=== PATIENT | female | born 1985 | race Native Hawaiian/Other Pacific Islander ===

== ENCOUNTER 2017-04-26 09:54 | Emergency (ER) | payer BC, OTHER ==
[2017-04-26 10:10] VITALS: BMI 27.9
[2017-04-26 10:52] LABS: RBC URINE 2 /hpf (0-3); URINE BACTERIA RARE (<OCC); URINE BILIRUBIN NEGATIVE (NEGATIVE); URINE BLOOD NEGATIVE (NEGATIVE); URINE COLOR Yellow (YELLOW); URINE GLUCOSE (UA) NORMAL (Normal); URINE KETONE NEGATIVE (NEGATIVE); URINE LEUKOCYTE ESTERASE 1+ Leu/uL (Negative); URINE PROTEIN NEGATIVE (NEGATIVE); URINE UROBILINOGEN NORMAL mg/dL (0.2-1.0); WBC URINE 2 /hpf (0-5)
--- NOTE | 2017-04-26 11:07 | OBHP ---
Datetime: 04/26/2017 10:10 IP Adm Impression: , intrauterine ; No Active Labor IP Adm Impression Other: uti IP Admit Plan: Discharge home Admit Comment, IP Provider: chief compalint- spotting HPI 31 y/o at 35 wga with c/o noticing a spot of blood in toilet after having a bowel movemen t.States that this was a normal bowel movement.Patient denies nausea, vomiting, headache, chest pain, shortness of breath, numbness or tingling in hands and feet course uncomplicated PMH denies PSH denies OBGYN HX Social hx denies tobacco,alcohol or illicit drug use exam see exam section A/P 31 y/o at 35 wga here with c/o noticing a spot of blood in toilet after bowel moveemnt.No evidence of blood in vagina on speculum exam.cervix closed.send UA 1105 m UA 1+LE;epitehlial cells 1; no nitrites A/P UTI -Script for macrobid given follow up [facility] dr dill enxt week Discussed with dr dill Pelvic Type - PN: Adequate Extremities - PN: Normal Abdomen - PN: Normal Back - PN: Normal Lungs - PN: Normal Heart - PN: Normal Neurologic - PN: Normal General - PN: Normal Contraction Comments Provider: none Comments, ACOG Physical Exam: Speculum exam Vulva no lesions Vagina no discharge; no blood or pink discharge Cervix closed/thick and high uterus gravid adnexa-no adnexal tenderness Gestation - Est Wks by US: 35.0 EGA AdmitDate IP: 35.0 Vital Signs Provider: Reviewed IP Chief Complaint: Vaginal bleeding FHR Category Provider Fetus A: Category I Dilatation, Provider: 0 Genitourinary Exam: Normal DTRs - PN: Normal
== END 2017-04-26 11:07 | disposition home or self-care (01) ==
LOC: C.EROB 09:54
DX: O26.853 Spotting complicating pregnancy, third trimester (principal); Z3A.35 35 weeks gestation of pregnancy

== ENCOUNTER 2017-05-14 10:34 | Emergency (ER) | payer BC, OTHER | END 2017-05-14 11:50 | disposition home or self-care (01) | LOC: C.EROB 10:34 | DX: O42.913 Preterm premature rupture of membranes, unspecified as to length of time between rupture and onset of labor, third trimester (principal); Z3A.36 36 weeks gestation of pregnancy ==

== ENCOUNTER 2017-05-25 12:12 | Inpatient (IN) | payer BC, OTHER ==
[2017-05-25] MEDS: Lactated Ringer's 1,000 ML IV SCH (12:45)
[2017-05-25 13:11] LABS: BASO # 0.1 K/uL (0.0-0.2); BASO % 0.5 % (0.0-2.0); EOS # 0.1 K/uL (0.0-0.7); EOS % 0.7 % (0.0-4.0); HEMATOCRIT 36.9 % (34.0-47.0); LYMPH # 1.7 K/uL (1.0-4.3); LYMPH % 13.2 % (20.0-40.0); MEAN CELL VOLUME 85.9 fL (81.0-99.0); MEAN CORPUSCULAR HEMOGLOBIN 28.4 pg (27.0-31.0); MEAN CORPUSCULAR HGB CONC 33.1 g/dL (33.0-37.0); MEAN PLATELET VOLUME 10.9 fL (7.2-11.7); MONO # 0.7 K/uL (0.0-0.8); MONO % 5.8 % (0.0-10.0); RED CELL DISTRIBUTION WIDTH 14.6 % (11.5-14.5); WHITE BLOOD COUNT 12.6 K/uL (4.8-10.8)
[2017-05-25 13:21] LABS: CHLORIDE 100 mmol/L (98-107); SODIUM 134 mmol/L (132-148)
[2017-05-25 13:22] LABS: POTASSIUM 4.6 mmol/L (3.6-5.2)
[2017-05-25 13:24] LABS: ALB/GLOB RATIO 0.9 (1.0-2.1); ALKALINE PHOSPHATASE 160 U/L (38-126); ALT/SGPT 24 U/L (9-52); AST/SGOT 39 U/L (14-36); BILIRUBIN,TOTAL 0.6 mg/dL (0.2-1.3); BLOOD UREA NITROGEN 9 mg/dL (7-17); CALCIUM 9.1 mg/dl (8.6-10.4); CARBON DIOXIDE 23 mmol/L (22-30); GFR AFRICAN-AMERICAN > 60; GLUCOSE,RANDOM 92 mg/dL (65-105); TOTAL PROTEIN 7.4 g/dL (6.3-8.3)
[2017-05-25 13:32] LABS: RBC URINE 1 /hpf (0-3); URINE BILIRUBIN NEGATIVE (NEGATIVE); URINE BLOOD 1+ (NEGATIVE); URINE COLOR Yellow (YELLOW); URINE GLUCOSE (UA) NORMAL (Normal); URINE KETONE NEGATIVE (NEGATIVE); URINE LEUKOCYTE ESTERASE NEG Leu/uL (Negative); URINE PROTEIN NEGATIVE (NEGATIVE); URINE UROBILINOGEN NORMAL mg/dL (0.2-1.0); WBC URINE < 1 /hpf (0-5)
--- NOTE | 2017-05-25 14:07 | OBADHP ---
Datetime: 05/25/2017 13:45 Contraction Comments Provider: occ Vital Signs Provider: Reviewed; Within Normal Limits FHR Category Provider Fetus A: Category I Dilatation, Provider: 2 Effacement, Provider: 70 Station, Provider: -2 Datetime: 05/25/2017 13:35 IP Adm Impression Other: oligohydramnios Admit Comment, IP Provider: chief complaint-contractions, vaginal discharge HPI 31 y/o at 39.1 wga with c/o notcing more vaginal discharge and having soem contractions.P atient denies vaginal bleeding or loss of fluid course uncomplicated; care with dr aniyah Rosas Ob: Primip P DIRECTOR OF MEDICAL SERVICES: 14 x monthly x 6. PMH: denies PSH: denies NKDA Meds: PNV - QD Soc Hx: denies tobacco, illicit drug or EtOH use. 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 Father alive 60 - HTN. No known fam h/o cancer. P.E.: as above WD in NAD. Awake, alert, oriented to time, person and place. Pleasant and cooperati ve Bedside ultrasound tim 3.9 cm; vertex presentation; bpp 6/8(0 for low fluid); nst reactive A/P 31 y/o at 39.1 wga with c/o contractions.Oligohydramnios -admit patient -management as per Dr Lyons Pelvic Type - PN: Adequate Extremities - PN: Normal Abdomen - PN: Normal Back - PN: Normal Breast - PN: Not Done Lungs - PN: Normal Heart - PN: Normal Thyroid - PN: Normal Neurologic - PN: Normal HEENT - PN: Normal General - PN: Normal Weight - Estimated: 3200 Presentation-Admit: Vertex Gestation - Est Wks by US: 39.1 IP Hx Assessment: The History has been Reviewed and is Current IP Chief Complaint: Uterine contractions Genitourinary Exam: Normal DTRs - PN: Normal EGA AdmitDate IP: 39.1 IP Adm Impression: Term, intrauterine ; No Active Labor IP Admit Plan: Admit to unit; Initiate labor induction protocol Datetime: 05/14/2017 11:52 FHR - Baseline A Provider: 145 Membranes, Provider: Intact Comments, ACOG Physical Exam: Abdomen: Gravid. Soft. Non tender in all quadrants. Fundal height 37 c m Perineum: dry Speculum: hyperemic cervix. No pooling; no excessive or abnormal discharge. Nitrazine (-) All other systems reviewed and are negative. Pool Provider: Negative Nitrazine Provider: Negative NICHD Variability Prov Fetus A: Moderate 6-25bpm NICHD Accel Fetus A IP Provider: [id number] NICHD Decel Fetus A IP Provider: None
--- NOTE | 2017-05-25 14:09 | OBPN ---
Datetime: 05/25/2017 13:45 IP Progress Plan Other: cervidil placed IP Progress Impression: Reassuring heart rate IP Procedures: Sterile Vag Exam IP Progress Plan: Cervical Ripening Contraction Comments Provider: occ Gestation - Est Wks by US: 39.1 Weight - Estimated: 3200 Presentation-Admit: Vertex IP Progress Note Comment: patient denies any compliant.s FHT cat1 [place] occ ctx sve 2/70/-2 Cervidil placed continue monitoring Vital Signs Provider: Reviewed; Within Normal Limits FHR Category Provider Fetus A: Category I Dilatation, Provider: 2 Effacement, Provider: 70 Station, Provider: -2 Datetime: 05/14/2017 11:52 Pool Provider: Negative Nitrazine Provider: Negative Membranes, Provider: Intact FHR - Baseline A Provider: 145 NICHD Accel Fetus A IP Provider: [id number] NICHD Variability Prov Fetus A: Moderate 6-25bpm NICHD Decel Fetus A IP Provider: None
[2017-05-25] MEDS ORDERED: Bupivacaine 0.125%/FentaNYL 200 ML EPI ONE (18:39)
[2017-05-25] MEDS ORDERED: Lidocaine 2% Inj (20ml) ONE (21:29)
[2017-05-25] MEDS ORDERED: Benzocaine/Menthol 20%-0.5% Topical Spray (60 ml) TOP PRN (21:42)
[2017-05-25] MEDS ORDERED: Oxycodone/Acetaminophen 5/325 mg Tab PO PRN ×2 (21:42)
--- NOTE | 2017-05-25 23:42 | OBDS ---
DELIVERY PERSONNEL Delivery Doctor: Sunny Lyons MD Scrub Nurse: Judy Chua Hydraulics Teacher: Malka Mahoney RN Anesthesiologist: Ashleigh Rivas MD MATERNAL INFORMATION Delivery Anesthesia: Local; Epidural Medications in Delivery: Pitocin 20 units IV/Methergine 0.2 mg IM Estimated Blood Loss (ml): 400 Placenta Cultured: No Maternal Complications: None Provider Comments: pt was fully dilated and pushing, vacumn applied 1 pull, 3 seconds due to non dustin ssuring heart tracing, head delivered in LOP position, vacumn released, no nuchal cord noted, a taumtic, spontaulse deliveyr of anerior followed by posterio shoulder followed by delivery of body. Both oral and nasal passages of baby were bulb suctione,d numbilcal cord clamped and cut. Baby handed to mother on abodmen with rn assistance. Cord blood collected and sent x 2. Spontaneous deliveyr o f intact plcaent with membranes. bilaterla sulcal teaer with right medoiloaterla episotomy repaired w ith 2-0 and 3-[address] fundus firm, good hemostaisis, no ocmplications. live female infant apgars 9,9 weight of 6lb 3 ounces ebl 400ml no complicatoins LABOR SUMMARY EDC: 05/31/2017 00:00 No. Babies in Womb: 1 Attempted: No Labor Anesthesia: Epidural LABOR INFORMATION Reason for Induction: Not Applicable Onset of Labor: 05/25/2017 13:00 Cervical Ripening Agents: Cervidil (Annotations: inserted by Dr Goode) Oxytocin: N/A Group B Beta Strep: Negative (Annotations: Notated by Dr Lyons 05/23/17 in records) Steroids Given: None Reason Steroids Not Administered: Not Applicable MEMBRANES Membranes Rupture Method: Spontaneous Rupture of Membranes: 05/25/2017 21:10 Length of Rupture (hrs): 0.95 Amniotic Fluid Color: Clear Amniotic Fluid Amount: Large Amniotic Fluid Odor: Normal STAGES OF LABOR Stage 3 hrs: 0 Stage 3 min: -57 Total Time in Labor hrs: 8 Total Time in Labor min: 10 VAGINAL DELIVERY Episiotomy: Right Mediolateral Laceration Extension: N/A Laceration Type: None Laceration Repair Note: right mediolateral episotomy, sulcus tear Initial Vag Sponge Count: 15 Final Vag Sponge Count: 15 Initial Vag Sharps Count: 5 Final Vag Sharps Count: 5 Sponge Count Correct: Yes; Vaginal Sweep Performed Sharps Count Correct: Yes Count Comment: yes BABY A INFORMATION Delivery Date/Time: 05/25/2017 22:07 Method of Delivery: Vaginal Born in Route : No : N/A Forceps: N/A Vacuum Extraction: Successful Shoulder Dystocia : No ASSISTED DELIVERY BABY A Vacuum Number of Pulls: 1 SHOULDER DYSTOCIA BABY A Infant Delivery Date/Time: 05/25/2017 22:07 PRESENTATION/POSITION BABY A Presentation: Cephalic Cephalic Presentation: Vertex Breech Presentation: N/A PLACENTA INFORMATION BABY A Placenta Delivery Time : 05/25/2017 21:10 Placenta Method of Delivery: Spontaneous Placenta Status: Delivered SCORES BABY A Heart Rate 1 min: >100 bpm Resp Effort 1 min: Good Cry Reflex Irritability 1 min: Cough or Sneeze or Pulls Away Muscle Tone 1 min: Active Motion Color 1 min: Body [place], Extremities Blue SCORE 1 MIN: 9 Heart Rate 5 min: >100 bpm Resp Effort 5 min: Good Cry Reflex Irritability 5 min: Cough or Sneeze or Pulls Away Muscle Tone 5 min: Active Motion Color 5 min: Body [place], Extremities Blue SCORE 5 MIN: 9 INFANT INFORMATION BABY A Gestational Age at Delivery: 39.0 Gestational Status: Term Infant Outcome : Liveborn Condition : Stable Infant Sex: Female IDENTIFICATION/MEDS BABY A ID Band Number: [id number] ID Band Location: Left Leg; Left Arm Sensor Applied: Yes Sensor Number: [id number] Sensor Location : Cord Clamp Vitamin K Given : Aquamephyton 1 mg IM; Left Thigh Erythromycin Given: Given Both Eyes WEIGHT/LENGTH BABY A Infant Birthweight (gms): 2820 Weight (lb): 6 Weight (oz): 3 Length Inches: 19.00 Length cms: 48.3 CORD INFORMATION BABY A No. Cord Vessels: 3 Nuchal Cord : N/A Cord Blood Taken: Yes Suction: Mouth ASSESSMENT BABY A Complications: Multiple Variable Decels Physical Findings at Delivery: Within Normal Limits Respirations: Appears Normal Microwave Radio Technician/ALS Called : Yes Infant Care By: Dr Lopes Transferred To: Remains with Mother
[2017-05-25] MEDS ORDERED: ceFAZolin IV 2 gm in Dextrose 1 GM/50 ML BAG IVPB ONE (23:43)
[2017-05-26] MEDS ORDERED: DEXTROSE IVPB ONE (01:30)
[2017-05-26] MEDS ORDERED: CEFAZOLIN IVPB ONE (01:30)
[2017-05-26] MEDS: Lactated Ringer's 1,000 ML IV SCH (01:31)
[2017-05-26 08:53] LABS: EOS % 0.1 % (0.0-4.0); HEMATOCRIT 29.1 % (34.0-47.0); LYMPH # 1.3 K/uL (1.0-4.3); LYMPH % 8.9 % (20.0-40.0); MEAN CELL VOLUME 85.8 fL (81.0-99.0); MEAN CORPUSCULAR HEMOGLOBIN 28.2 pg (27.0-31.0); MEAN CORPUSCULAR HGB CONC 32.9 g/dL (33.0-37.0); MEAN PLATELET VOLUME 10.5 fL (7.2-11.7); MONO # 0.6 K/uL (0.0-0.8); MONO % 3.9 % (0.0-10.0); PLATELET COUNT 133 K/uL (130-400); RED CELL DISTRIBUTION WIDTH 14.7 % (11.5-14.5); WHITE BLOOD COUNT 14.7 K/uL (4.8-10.8)
[2017-05-26 09:28] LABS: NEUTROPHIL 83 % (50-75); TOTAL CELLS COUNTED 100
[2017-05-26 09:29] LABS: LARGE PLATELETS PRESENT
--- NOTE | 2017-05-26 13:14 | OBPPN ---
Datetime: 05/26/2017 13:12 PP Pain Prov: Within normal limits PP Nausea Prov: Denies PP Flatus Prov: Yes PP Breasts Prov: Normal PP Heart Prov: Normal PP Lungs Prov: Normal PP Abdomen/Uterus Prov: Normal PP Lochia Prov: Normal PP Vulva/Perineum Prov: Normal PP CVA Tenderness Prov: Normal PP Extremities Prov: Normal PP C/S Incision Prov: Not Applicable PP Progress Prov: Normal PP Comments Phys Exam Prov: VE; episotok site ehailgn well, minimla lochial non fouls semlling ABD; sot, nt, nd, +BS bresat non engorged b/l PP Progress Note Prov: pt report pain controlled with medicaiton, ambuating, voiidng, tolerating t, breast feeding, denies any cp, sob vss pe see above a/p s/p ppd #`1 doing well -f/u am cbc -pian mangment -encoaurge bresatfeeding/ambuatin -possible d/c in am -rto 2-3 week for incsion check Vital Signs Provider PP: Reviewed; Within Normal Limits
--- NOTE | 2017-05-26 13:15 | OBDCSUM ---
Datetime: 05/26/2017 13:13 Discharged to, Provider: Home Follow up at, Provider: Dr Lyons Disch Instr Activity: Normal activity Disch Instr Diet: Regular Discharge Instructions, Provider: Routine instructions given Discharge Diagnosis, Provider: Term Delivered Follow up in weeks, Provider: 2-3 weeks Disch Referrals: None Contraception discussed, Prov: Yes Disch Activity Restrictions: No sexual activity; Nothing in vagina - [place], tampons, douche Discharge Comment, Provider: precatuisn given Contraception after Delivery: Not Planning to Use
[2017-05-26] MEDS: Multiple Vitamins Tab PO SCH (14:17)
[2017-05-26 16:16] VITALS: RESP 20
--- NOTE | 2017-05-27 08:14 | OBPPN ---
Datetime: 05/27/2017 08:12 PP Pain Prov: Within normal limits PP Nausea Prov: Denies PP Flatus Prov: Yes PP Abdomen/Uterus Prov: Normal PP Lochia Prov: Normal PP Extremities Prov: Normal PP Comments Phys Exam Prov: fudis below umblicus ext no edema,no calf ten PP Impression Prov: Normal progression PP Plan Prov: Discharge PP Progress Note Prov: pt was seen at bed side, pain under control,no n/v, tolerating deit, voiding, min lochia,flatus + ppd#2 s/p dc home ferrous sulfate no sex motrin prn f/u in 2-3 weeks pmd Vital Signs Provider PP: Reviewed; Within Normal Limits
[2017-05-27 08:20] VITALS: BP 112/78; PULSE 88; TEMP 97.8; O2SAT 100
[2017-05-27] MEDS: Multiple Vitamins Tab PO SCH (09:42)
== END 2017-05-27 13:50 | disposition home or self-care (01) | DRG 775 ==
LOC: C.EROB 12:12 → C.4D 12:35 → C.4M 05-26 01:07
PROVIDERS: ADMIT Obstetrics & Gynecology; ATTEND Obstetrics & Gynecology
PROC: 10D07Z6 Extraction of Products of Conception, Vacuum, Via Natural or Artificial Opening (ICD-10-PCS; principal; 2017-05-25)
PROC: 0W8NXZZ Division of Female Perineum, External Approach (ICD-10-PCS; 2017-05-25)
DX: O41.03X0 Oligohydramnios, third trimester, not applicable or unspecified (principal); O76 Abnormality in fetal heart rate and rhythm complicating labor and delivery; O66.5 Attempted application of vacuum extractor and forceps; Z3A.39 39 weeks gestation of pregnancy; Z37.0 Single live birth